=== PATIENT | male | born 1995 | race Caucasian/White ===

== ENCOUNTER 2022-01-28 13:55 | Emergency (ER) | payer OTHER ==
[2022-01-28 16:25] VITALS: BP 118/76; PULSE 80; RESP 14; TEMP 98.6
[2022-01-28] MEDS ORDERED: ALBUTEROL HFA INHALER INHALATION STA (16:38)
--- NOTE | 2022-01-28 17:25 | ED ---
General Adult HPI - General Chief complaint: Chest Pain Stated complaint: [facility]/chemical inhalation Time Seen by Provider: 01/28/22 16:16 Source: patient Mode of arrival: ambulatory Limitations: no limitations - History of Present Illness Initial comments: Patient is a 26-year-old male presenting with chief complaint of chest discomfort after inhalation of allegedly toxic fumes at work. 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 Patient was breathing the fumes, afterwards he began developing chest discomfort. Patient states that it feels like he cannot take a deep breath. No radiation of the pain down the arm or up the neck. No nausea or vomiting or diarrhea. No abdominal pain, headache, fever, chills. No hemoptysis or cough. No URI-like symptoms. No weakness, numbness, tingling, vision or hearing changes. - Related Data Previous Rx's Medication Instructions Recorded Albuterol Inhaler [Ventolin Hfa 2 puff INHALATION RT-QID PRN #8 gm 01/28/22 Inhaler] Allergies Allergy/AdvReac Type Severity Reaction Status Date / Time No Known Allergies Allergy Verified 01/28/22 18:07 Review of Systems ROS Statement: Those systems with pertinent positive or pertinent negative responses have been documented in the HPI. ROS Other: All systems not noted in ROS Statement are negative. Past Medical History Additional Past Medical History / Comment(s): IBS History of Any Multi-Drug Resistant Organisms: None Reported Past Surgical History: No Surgical Hx Reported Past Psychological History: No Psychological Hx Reported Smoking Status: Never smoker Past Alcohol Use History: Daily Past Drug Use History: None Reported General Exam Limitations: no limitations General appearance: alert, in no apparent distress Head exam: Present: atraumatic, normocephalic, normal inspection Eye exam: Present: normal appearance. Absent: scleral icterus Neck exam: Present: normal inspection Respiratory exam: Present: normal lung sounds bilaterally. Absent: respiratory distress, wheezes, rales, rhonchi, stridor Cardiovascular Exam: Present: regular rate, normal rhythm, normal heart sounds. Absent: systolic murmur, diastolic murmur, rubs, gallop, clicks Back exam: Present: normal inspection Neurological exam: Present: alert, oriented X3, CN II-XII intact Psychiatric exam: Present: normal affect, normal mood Skin exam: Present: warm, dry, intact, normal color. Absent: rash Course Vital Signs 01/28/22 01/28/22 13:59 15:05 Temperature 97.8 F 98.6 F Pulse Rate 83 80 Respiratory 16 14 Rate Blood Pressure 122/73 118/76 O2 Sat by Pulse 99 99 Oximetry Medical Decision Making - Medical Decision Making Patient is a 26-year-old male presenting for evaluation after breathing in potentially toxic fumes at work. 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 At work he began experiencing some chest tightness and presented to the ER. At this time he states that it feels difficult to take a normal deep breath. On exam lungs and heart are clear to auscultation. I spoke with poison control who stated that symptoms normally consist of chest pain or tightness, shortness of breath, nausea, vomiting, diarrhea, dizziness, drowsiness. Symptoms should go away in about 4-6 hours. They advised bronchodilators and oxygen if needed, along with a chest x-ray. Chest x-ray revealed no acute process. 6 hours post-inhalation injury, patient states his symptoms are starting to subside. He received 2 puffs of an albuterol inhaler in the ER. He appears stable for discharge with outpatient follow-up at this time. Follow-up with your PCP in one to 2 days. Report back to ER with any worsening symptoms. Educated the patient on return parameters answered all questions. Patient conveyed verbal understanding and agreed to the plan. I prescribed him an albuterol inhaler 2 puffs every 4-6 hours as needed for shortness of breath, take as prescribed. I discussed this case with my attending Dr. Hurt. - Radiology Data Radiology results: report reviewed, image reviewed Chest x-ray: No acute cardiopulmonary process/disease Disposition Clinical Impression: Inhalation injury Disposition: HOME SELF-CARE Condition: Good Instructions (If sedation given, give patient instructions): Chest Pain (ED) Additional Instructions: Follow-up with primary care in 1-2 days. Take medication as prescribed. Report back to ER with any worsening symptoms. Prescriptions: Albuterol Inhaler [Ventolin Hfa Inhaler] 2 puff INHALATION RT-QID PRN #8 gm PRN Reason: Shortness Of Breath Is patient prescribed a controlled substance at d/c from ED?: No Referrals: Reji Fernandez III, MD [Primary Care Provider] - 1-2 days Time of Disposition: 18:22
--- NOTE | 2022-01-28 18:00 | XR ---
EXAMINATION TYPE: XR chest 2V DATE OF EXAM: 01/28/2022 5:28 PM COMPARISON: None TECHNIQUE: XR chest 2V Frontal and lateral views of the chest. CLINICAL INDICATION:Male, 26 years old with history of chest pain; FINDINGS: Lungs/Pleura: There is no evidence of pleural effusion, focal consolidation, or pneumothorax. Pulmonary vascularity: Unremarkable. Heart/mediastinum: Cardiomediastinal silhouette is unremarkable. Musculoskeletal: No acute osseous pathology. IMPRESSION: No acute cardiopulmonary disease/process.
== END 2022-01-28 18:37 | disposition home or self-care (01) ==
LOC: EC 13:55
DX: R07.89 Other chest pain (principal); T59.811A Toxic effect of smoke, accidental (unintentional), initial encounter
CPT/HCPCS: 71046; 93005; 94640; 99285

== ENCOUNTER 2023-11-23 09:24 | Emergency (ER) | payer BC ==
[2023-11-23] MEDS: HYDROcodone/APAP 7.5-325MG 1 EACH TAB PO ONE (09:55)
[2023-11-23] MEDS: CYCLOBENZAPRINE 10 MG TAB PO STA (09:55)
--- NOTE | 2023-11-23 10:29 | XR ---
Lumbar spine HISTORY: Back pain COMPARISON: None. TECHNIQUE: 3 views of the lumbar spine were obtained FINDINGS: The lumbar vertebral segments are normal in height and alignment there is no fracture or subluxation. The disc spaces are well-maintained in height and there is no significant degenerative disc disease. The facet joints are intact. Incidental note is made of partial sacralization of L5. IMPRESSION: No significant abnormality seen.
[2023-11-23] MEDS: IBUPROFEN 600 MG TAB PO STA (10:53)
--- NOTE | 2023-11-23 10:57 | ED ---
Back Pain HPI - General Chief Complaint: Back Pain/Injury Stated Complaint: Back pain Time Seen by Provider: 11/23/23 09:29 Source: patient, family, RN notes reviewed Mode of arrival: ambulatory Limitations: no limitations - History of Present Illness Initial Comments: 27-year-old male presents emergency department with chief complaint of back pain. Patient states that started yesterday after riding in the car. He states his back felt like he just tightened up. He denies any pain rating down his legs. Denies any bowel combatant Tension. No abdominal pain he states he does have some relief with rest but is worse with any movement - Related Data Previous Rx's Medication Instructions Recorded Albuterol Inhaler [Ventolin Hfa 2 puff INHALATION RT-QID PRN #8 gm 01/28/22 Inhaler] Cyclobenzaprine [Flexeril] 10 mg PO TID PRN #15 tab 11/23/23 Ibuprofen [Motrin] 800 mg PO Q6HR #30 tab 11/23/23 Allergies Allergy/AdvReac Type Severity Reaction Status Date / Time No Known Allergies Allergy Verified 01/28/22 18:07 Review of Systems ROS Statement: Those systems with pertinent positive or pertinent negative responses have been documented in the HPI. ROS Other: All systems not noted in ROS Statement are negative. Past Medical History Additional Past Medical History / Comment(s): IBS History of Any Multi-Drug Resistant Organisms: None Reported Past Surgical History: No Surgical Hx Reported Past Psychological History: No Psychological Hx Reported Smoking Status: Never smoker Past Alcohol Use History: Daily Past Drug Use History: None Reported General Exam Limitations: no limitations General appearance: alert, in no apparent distress Head exam: Present: atraumatic, normocephalic, normal inspection Respiratory exam: Present: normal lung sounds bilaterally. Absent: respiratory distress, wheezes, rales, rhonchi, stridor Cardiovascular Exam: Present: regular rate, normal rhythm, normal heart sounds. Absent: systolic murmur, diastolic murmur, rubs, gallop, clicks GI/Abdominal exam: Present: soft, normal bowel sounds. Absent: distended, tenderness, guarding, rebound, rigid Extremities exam: Present: normal inspection, full ROM, normal capillary refill. Absent: tenderness, pedal edema, joint swelling, calf tenderness Back exam: Present: tenderness, muscle spasm, paraspinal tenderness. Absent: full ROM, vertebral tenderness Course Vital Signs 11/23/23 11/23/23 09:31 10:56 Temperature 98 F 98.1 F Pulse Rate 94 86 Respiratory 16 158 H Rate Blood Pressure 123/72 126/82 O2 Sat by Pulse 99 99 Oximetry Medical Decision Making - Medical Decision Making Was pt. sent in by a medical professional or institution (, AUDREY, LEATHER WORKER, urgent care, hospital, or half-way...) When possible be specific @ -[No] Did you speak to anyone other than the patient for history (EMS, parent, family, police, friend...)? What history was obtained from this source @ -[No] Did you review nursing and triage notes (agree or disagree)? Why? @ -[I reviewed and agree with nursing and triage notes] Were old charts reviewed (outside hosp., previous admission, EMS record, old EKG, old radiological studies, urgent care reports/EKG's, half-way records)? Report findings @ -No old charts were reviewed Differential Diagnosis (chest pain, altered mental status, abdominal pain women, abdominal pain men, vaginal bleeding, weakness, fever, dyspnea, syncope, headache, dizziness, GI bleed, back pain, seizure, CVA, palpatations, mental health, musculoskeletal)? @ -[Differential Back Pain: Strain, zoster, cauda equina syndrome, epidural abscess, vertebral osteomyelitis, discitis, fracture, subluxation, disc herniation, DJD, spinal stenosis, dissection, AAA, pancreatitis, peptic ulcer disease, pyelonephritis, kidney stone, this is not meant to be an all-inclusive list. EKG interpreted by me (3pts min.). @ -None X-rays interpreted by me (1pt min.). @ -X-ray lumbar spine no acute osseous abnormality, no malalignment no degenerative changes CT interpreted by me (1pt min.). @ -[None done U/S interpreted by me (1pt. min.). @ -None done What testing was considered but not performed or refused? (CT, X-rays, U/S, labs)? Why? @ -None What meds were considered but not given or refused? Why? @ -None Did you discuss the management of the patient with other professionals (professionals i.e. , AUDREY, LEATHER WORKER, lab, RT, psych nurse, social work program coordinator, consumer credit counselor, teacher, combatant diver officer, foster care case manager)? Give summary @ -No Was smoking cessation discussed for >3mins.? @ -No Was critical care preformed (if so, how long)? @ -No Were there social determinants of health that impacted care today? How? (Homelessness, low income, unemployed, alcoholism, drug addiction, transportation, low edu. Level, literacy, decrease access to med. care, snf, rehab)? @ -No Was there de-escalation of care discussed even if they declined (Discuss DNR or withdrawal of care, Hospice)? DNR status @ -No What co-morbidities impacted this encounter? (DM, HTN, Smoking, COPD, CAD, Cancer, CVA, ARF, Chemo, Hep., AIDS, mental health diagnosis, sleep apnea, morbid obesity)? @ -None Was patient admitted / discharged? Hospital course, mention meds given and route, prescriptions, significant lab abnormalities, going to OR and other pertinent info. @ -[Discharge patient felt better after [place], Flexeril. Patient symptoms are related to muscle spasm, muscle strain. He has no red flag symptoms will be discharged in stable condition Undiagnosed new problem with uncertain prognosis? @ -No Drug Therapy requiring intensive monitoring for toxicity (Heparin, Nitro, Insulin, Cardizem)? @ -No Were any procedures done? @ -No Diagnosis/symptom? @ -[Lumbar strain Acute, or Chronic, or Acute on Chronic? @ -Acute Uncomplicated (without systemic symptoms) or Complicated (systemic symptoms)? @ -[Uncomplicated Side effects of treatment? @ -[No Exacerbation, Progression, or Severe Exacerbation? @ -No Poses a threat to life or bodily function? How? (Chest pain, [place], [place], pneumonia, PE, COPD, DKA, ARF, appy, cholecystitis, CVA, Diverticulitis, Homicidal, Suicidal, threat to staff... and all critical care pts) @ -No Disposition Clinical Impression: Strain of lumbar region Disposition: HOME SELF-CARE Condition: Stable Instructions (If sedation given, give patient instructions): Acute Low Back Pain (ED) Additional Instructions: Please return to the Emergency Department if symptoms worsen or any other concerns. Prescriptions: Cyclobenzaprine [Flexeril] 10 mg PO TID PRN #15 tab PRN Reason: Muscle Spasm Ibuprofen [Motrin] 800 mg PO Q6HR #30 tab Is patient prescribed a controlled substance at d/c from ED?: No Referrals: None,Stated [Primary Care Provider] - 1-2 days Time of Disposition: 10:41
[2023-11-23] MEDS ORDERED: ACET/COD 300 MG/30 MG STARTER PACK 6 TAB BTL PO STA (10:58)
[2023-11-23 11:13] VITALS: BP 126/82; PULSE 86; RESP 158; TEMP 98.1
== END 2023-11-23 10:58 | disposition home or self-care (01) ==
LOC: EC 09:24
DX: S39.012A Strain of muscle, fascia and tendon of lower back, initial encounter (principal); X58.XXXA Exposure to other specified factors, initial encounter; Y93.I9 Activity, other involving external motion
CPT/HCPCS: 72100; 99283